=== PATIENT | female | born 1970 | race Caucasian/White ===

== ENCOUNTER 2018-11-29 17:53 | Emergency (ER) | payer OTHER ==
[2018-11-29 18:05] VITALS: PULSE 74; RESP 20; O2SAT 97
[2018-11-29] MEDS ORDERED: Sodium Chloride 0.9% 1,000 ML IV STA (19:38)
[2018-11-29] MEDS ORDERED: SODIUM CHLORIDE 0.9% IV STA (19:38)
[2018-11-29] MEDS ORDERED: LIDOCAINE IV STA (19:38)
--- NOTE | 2018-11-29 19:38 | C.PDOC ---
History Of Present Illness 48 year old female presents complaining of left flank pain radiating down the left leg for the past week. Patient states the pain worsens with movement. She reports a Hx of kidney stone 5 years ago. Patient took rowatinex this morning that was prescribed to her from [place] for kidney stones. Denies fever, vomiting, or urinary complaints. Time Seen by Provider: 11/29/18 19:16 Chief Complaint (Nursing): Back Pain History Per: Patient History/Exam Limitations: no limitations Onset/Duration Of Symptoms: Days Current Symptoms Are (Timing): Still Present Quality Of Discomfort: Unable To Describe Previous Symptoms: None Associated Symptoms: None Exacerbating Factor(s): Movement Recent travel outside of the [place]: No Past Medical History Reviewed: Historical Data, Nursing Documentation, Vital Signs Vital Signs: Last Vital Signs Temp 98.6 F 11/29/18 18:02 Pulse 74 11/29/18 18:02 Resp 20 11/29/18 18:02 BP 118/81 11/29/18 18:02 Pulse Ox 97 11/29/18 18:02 - Medical History PMH: HTN Family History: States: No Known Family Hx - Social History Hx Alcohol Use: No Hx Substance Use: No - Immunization History Hx Tetanus Toxoid Vaccination: No Hx Influenza Vaccination: No Hx Pneumococcal Vaccination: No Review Of Systems Except As Marked, All Systems Reviewed And Found Negative. Constitutional: Negative for: Fever Gastrointestinal: Negative for: Vomiting Genitourinary: Negative for: Dysuria, Hematuria Musculoskeletal: Positive for: Other (Left flank) Physical Exam - Physical Exam Appears: Non-toxic Skin: Normal Color, Warm, Dry Head: Atraumatic, Normacephalic Eye(s): bilateral: Normal Inspection Oral Mucosa: Moist Neck: Normal, Supple Chest: Symmetrical, No Tenderness Cardiovascular: Rhythm Regular Respiratory: Other (NARD) Gastrointestinal/Abdominal: Soft, No Tenderness Back: Other (Reproducible left flank pain with gait) Extremity: Normal ROM (x4) Neurological/Psych: Oriented x3, Normal Speech, Normal Motor, Normal Sensation, Other (No focal deficit) Gait: Steady ED Course And Treatment - Laboratory Results Result Diagrams: 11/29/18 20:00 11/29/18 20:00 Urine POC: Negative O2 Sat by Pulse Oximetry: 97 (Room air) Pulse Ox Interpretation: Normal - CT Scan/US CT abd/pel Other Rad Studies (CT/US): Read By Radiologist, Radiology Report Reviewed CT/US Interpretation: EXAM: CT Abdomen and Pelvis without IV contrast. CLINICAL HISTORY: Abd pain, LT flank/ groin pain. TECHNIQUE: Axial computed tomography images of the abdomen and pelvis without intravenous contrast. 0.00 mGy-cm. CONTRAST: Without. COMPARISON: None provided. FINDINGS: LUNG BASES: The lung bases appear clear. No pleural effusions are seen. LIVER: There is hepatomegaly. The liver measured an estimated 17.1 cm in the midclavicular line. GALLBLADDER AND BILE DUCTS: The gallbladder appears within normal limits. No radioopaque gallstones are seen. No biliary ductal dilatation is evident. PANCREAS: Unremarkable. SPLEEN: Unremarkable. ADRENAL GLANDS: Unremarkable. KIDNEYS, URETERS, AND BLADDER: The kidneys appear within normal limits. There is no hydronephrosis or hydroureter. No urinary calculi are seen. The urinary bladder is normal in size and configuration. STOMACH AND BOWEL: Unremarkable appearance of the stomach and bowel. No evidence of bowel obstruction. No evidence suggesting enteritis or colitis. APPENDIX: No evidence of acute appendicitis on CT examination. PERITONEUM: No free fluid. No free air. LYMPH NODES: No lymphadenopathy is evident. REPRODUCTIVE: Unremarkable as visualized. VASCULATURE: No evidence of abdominal aortic aneurysm. Minor atherosclerotic plaquing is noted. BONES: No aggressive appearing osseous lesion. No acute osseous pathology evident. There is evidence of degenerative disc disease at L1-2. IMPRESSION: 1. Mild hepatomegaly. Measurement is given above. 2. Evidence of degenerative disc disease at L1-2. Reevaluation Time: 21:55 Reassessment Condition: Improved Medical Decision Making Medical Decision Making: Plan: * CT abd/pel * Blood work * Urinalysis * IV fluids * Tylenol * Toradol * IV fluids * Flomax * Lidocaine Disposition Counseled Patient/Family Regarding: Studies Performed, Diagnosis, Need For Followup, Rx Given - Disposition Referrals: YOUR,PMD [Other] Disposition: HOME/ ROUTINE Disposition Time: 21:56 Condition: IMPROVED Prescriptions: Acetaminophen [Tylenol Extra Strength] 2 tab PO Q6 #30 tablet Cyclobenzaprine [Flexeril] 10 mg PO TID #15 tab Gabapentin [Neurontin] 300 mg PO TID #30 cap Ibuprofen [Motrin] 600 mg PO Q6 #30 tab Instructions: Sciatica (DC) Forms: eeden ([place]) - Clinical Impression Clinical Impression: Sciatica - Scribe Statement The provider has reviewed the documentation as recorded by the Scribe Darin Minaya All medical record entries made by the Scribe were at my direction and personally dictated by me. I have reviewed the chart and agree that the record accurately reflects my personal performance of the history, physical exam, medical decision making, and the department course for this patient. I have also personally directed, reviewed, and agree with the discharge instructions and disposition.
--- NOTE | 2018-11-29 19:38 | C.PDOC ---
Time Seen by Provider: 11/29/18 19:16 Chief Complaint (Nursing): Back Pain Past Medical History Vital Signs: Last Vital Signs Temp 98.6 F 11/29/18 18:02 Pulse 74 11/29/18 18:02 Resp 20 11/29/18 18:02 BP 118/81 11/29/18 18:02 Pulse Ox 97 11/29/18 18:02 - Medical History PMH: HTN - Social History Hx Alcohol Use: No Hx Substance Use: No - Immunization History Hx Tetanus Toxoid Vaccination: No Hx Influenza Vaccination: No Hx Pneumococcal Vaccination: No ED Course And Treatment O2 Sat by Pulse Oximetry: 97 Disposition - Disposition
[2018-11-29] MEDS ORDERED: Sodium Chloride 0.9% 1,000 ML ONE (19:55)
[2018-11-29 20:04] LABS: BASO % 0.5 % (0.0-2.0); EOS # 0.1 K/uL (0.0-0.7); EOS % 1.4 % (0.0-4.0); HEMOGLOBIN 12.6 g/dL (11.0-16.0); LYMPH # 3.5 K/uL (1.0-4.3); LYMPH % 60.3 % (20.0-40.0); MEAN CELL VOLUME 91.6 fL (81.0-99.0); MEAN CORPUSCULAR HEMOGLOBIN 30.1 pg (27.0-31.0); MEAN CORPUSCULAR HGB CONC 32.9 g/dL (33.0-37.0); MONO # 0.4 K/uL (0.0-0.8); MONO % 6.1 % (0.0-10.0); NEUT # 1.8 K/uL (1.8-7.0); NEUT % 31.7 % (50.0-75.0); NRBC % 0.2 % (0.0-2.0); RBC 4.19 Mil/uL (3.80-5.20); RED CELL DISTRIBUTION WIDTH 13.5 % (11.5-14.5); WHITE BLOOD COUNT 5.8 K/uL (4.8-10.8)
[2018-11-29 20:17] LABS: ALB/GLOB RATIO 1.3 (1.0-2.1); ALT/SGPT 25 U/L (9-52); AST/SGOT 33 U/L (14-36); BLOOD UREA NITROGEN 15 mg/dL (7-17); CALCIUM 9.8 mg/dl (8.6-10.4); GFR NON-AFRICAN AMERICAN 60; LIPASE 200 U/L (23-300)
[2018-11-29 20:20] LABS: SQUAMOUS EPITHIAL < 1 /hpf (0-5); URINE BILIRUBIN NEGATIVE (NEGATIVE); URINE BLOOD NEGATIVE (NEGATIVE); URINE CLARITY Clear (Clear); URINE COLOR Colorless (YELLOW); URINE GLUCOSE (UA) NORMAL (Normal); URINE LEUKOCYTE ESTERASE NEG Leu/uL (Negative); URINE PROTEIN NEGATIVE (NEGATIVE); URINE UROBILINOGEN NORMAL mg/dL (0.2-1.0)
[2018-11-29 22:16] VITALS: BP 133/85; TEMP 97.9
--- NOTE | 2018-11-30 09:12 | CT ---
CT abdomen and pelvis HISTORY: Left flank pain. COMPARISON: None available. Technique: Multiple contiguous axial images were performed through the abdomen and pelvis without the use of intravenous contrast. Subsequently, sagittal and coronal reformatted images were obtained. This CT exam was performed using one or more of the following dose reduction techniques: Automated exposure control, adjustment of the mA and/or kV according to patient size, and/or use of iterative reconstruction technique. Findings: 1 millimeter subpleural nodular density at the anterior aspect of the right middle lobe. Atelectasis at the lung bases. No pleural or pericardial effusion. Prominent liver. Gallbladder is preserved. Spleen is preserved. Adrenal glands are preserved. Pancreas is preserved. Upper abdominal bowel is grossly preserved. Right kidney: No gross calculi or hydronephrosis. Left Kidney: Fullness of the upper pole left renal collecting system best demonstrated on series 4, image 50 which demonstrates a Hounsfield unit attenuation of 13. This may represent mild upper pole hydronephrosis versus peripelvic cyst. Correlation with renal ultrasound may be helpful if indicated. No gross calculus identified. Urinary bladder is preserved. Heterogeneous uterus. Under distended left hemicolon. Appendix not well visualized on this noncontrast study. If there is concern for appendiceal pathology, consider correlation with a contrast-enhanced CT scan. Mild atherosclerotic calcification plaque the aorta. Degenerative changes in the spine. Impression: 1. Fullness of the upper pole left renal collecting system best demonstrated on series 4, image 50 which demonstrates a Hounsfield unit attenuation of 13. This may represent mild upper pole hydronephrosis versus peripelvic cyst. Correlation with renal ultrasound may be helpful if indicated. No gross calculus identified. 2. Appendix not well visualized on this noncontrast study. If there is concern for appendiceal pathology, consider correlation with a contrast-enhanced CT scan. Additional findings as above. A preliminary report was generated at 9:44 p.m. on 11/29/[address] Nic Dumont from [employer]. This case was placed in the PA review folder.
== END 2018-11-29 22:19 | disposition home or self-care (01) ==
LOC: C.ER 17:53
DX: M54.30 Sciatica, unspecified side (principal)
CPT/HCPCS: 74176; 80053; 81001; 81025; 83690; 85025; 96361; 96374; 99285; J1885; J2001; J7030